=== PATIENT | female | born 1945 ===

== ENCOUNTER 2020-07-11 23:37 | Emergency (ER) | payer SELFPAY ==
[~2020-07-11] VITALS: Ht 147.3 cm; Wt 58.8 kg
[2020-07-11 23:46] VITALS: BP 166/80
--- NOTE | 2020-07-12 00:05 | NUR ---
DR MARIA SEEING PT IN TRIAGE.
== END 2020-07-12 00:36 | disposition home or self-care (01) ==
LOC: ED 07-12 00:05
DX: R05 Cough (principal); I10 Essential (primary) hypertension; E11.9 Type 2 diabetes mellitus without complications; Z77.098 Contact with and (suspected) exposure to other hazardous, chiefly nonmedicinal, chemicals
CPT/HCPCS: 99281